=== PATIENT | male | born 1945 | race Caucasian/White ===

== ENCOUNTER 2017-07-24 16:20 | Inpatient (IN) | payer MEDICARE, OTHER ==
[~2017-07-24] VITALS: Ht 170.2 cm; Wt 104.5 kg
--- NOTE | ~2017-07-24 | HP ---
History And Physical [id number] [place]. [address] NAME: MONTSE SERRATO : 41 STATUS : ADM IN [facility]#: [id number] AGE: 71 ADM/REG DATE : 07/24/17 MR#: [id number] REPORT SERV DATE: 07/24/17 DICTATED BY: JOSUÉ URIBE JR. DATE: 07/24/17 REPORT STATUS : Draft TRANSCRIBED BY: ZOLTAN DATE: 07/24/17 DATE OF ADMISSION: 07/24/2017 CHIEF COMPLAINT: Chest pain. HISTORY OF PRESENT ILLNESS: Montse is a 71-year-old white male, who drives a bus for living. He had new onset chest pain around 3:15, it persisted and was worrisome prompting EMS call. EKG in the field revealed anteroseptal STEMI and code STEMI protocol was activated. On arrival, the patient's chest pain was 2/10. He denied shortness of breath. The patient denied prior angina to this event. PAST MEDICAL HISTORY: Includes hypertension, type 2 diabetes, mixed hyperlipidemia, hypothyroidism, obesity. He had pilonidal cyst surgery 40 years ago. He denies prior TIA or stroke. ALLERGIES: DENIED. CURRENT MEDICATIONS: Include levothyroxine, atorvastatin, losartan, metformin, aspirin, and vitamin D. SOCIAL HISTORY: The patient does not smoke, drink, or use recreational drugs. FAMILY HISTORY: Negative for premature vascular events. REVIEW OF SYSTEMS: He denies bleeding diathesis, recent fever or chills, sudden weight gain or weight loss. Remainder as in HPI or negative. PHYSICAL EXAMINATION: VITAL SIGNS: Blood pressure is 108/60, heart rate 67, respirations 16. GENERAL: Obese male, in no acute distress. HEENT: Anicteric, no scleral injection, no oral lesions. NECK: No JVD, supple, no bruits. LUNGS: Clear to auscultation. No hyperexpansion. CARDIOVASCULAR: Regular rate and rhythm with distant heart sounds. ABDOMEN: Soft, nontender. Normoactive bowel sounds, no hepatosplenomegaly. EXTREMITIES: Trace peripheral edema. SKIN: No visible rashes. NEURO/PSY: Normal affect, alert and oriented x 3. MEDICAL DECISION MAKIN. Anterior ST-elevation myocardial infarction. The patient has persistent ST-elevation on the monitor. His symptoms have improved with therapy. He is a diabetic. Based upon presenting EKG and persistent symptoms, the patient will go emergently to coronary angiography and percutaneous intervention. The risks and benefits were verbally explained and verbally accepted. This is considered an emergent procedure. History And Physical [address] [address] NAME: MONTSE SERRATO : [birth year] STATUS : ADM IN [facility]#: [id number] AGE: 71 ADM/REG DATE : 07/24/17 MR#: [id number] REPORT SERV DATE: 07/24/17 DICTATED BY: JOSUÉ URIBE JR. DATE: 07/24/17 REPORT STATUS : Draft TRANSCRIBED BY: MODL DATE: 07/24/17 2. Mixed hyperlipidemia. The patient will be titrated to intensive statin therapy. 3. Diabetes. We will ask the hospitalist to assist us with care during this hospital stay. YVETTE/ZOLTAN Josué Uribe Jr., M.D. / [id number] CC: Josué Uribe Jr., M.D.
[2017-07-24 17:09] LABS: BASOPHILS 0.3 %; BASOPHILS ABSOLUTE 0.03 10/3/uL (0.0-0.16); EOSINOPHILS 1.6 %; EOSINOPHILS ABSOLUTE 0.15 10/3/uL (0.0-0.53); HEMATOCRIT 42.5 % (40.0-51.0); IMMATURE GRANULOCYTES 0.3 %; IMMATURE GRANULOCYTES ABSOLUTE 0.03 10/3/uL (0.0-0.11); LYMPHOCYTES 21.4 %; LYMPHOCYTES ABSOLUTE 1.98 10/3/uL (0.67-4.30); MEAN CORPUS HGB CONC 35.3 g/dL (32.0-36.0); MEAN CORPUSCULAR HEMOGLOB 31.3 pg (26.0-34.0); MEAN CORPUSCULAR VOLUME 88.5 fL (80-100); MEAN PLATELET VOLUME 9.7 fL (9.2-13.0); MONOCYTES ABSOLUTE 0.56 10/3/uL (0.21-1.20); NEUTROPHILS 70.4 %; NEUTROPHILS ABSOLUTE 6.51 10/3/uL (2.02-8.40); PLATELET COUNT 187 10/3/uL (150-400); RBC DISTRIBUTION WIDTH 13.3 % (12.0-16.0); WHITE BLOOD CELLS 9.3 10/3/uL (4.5-10.5)
[2017-07-24 17:10] LABS: MANUAL DIFF NO %
[2017-07-24 17:17] LABS: INTERNATIONAL NORMAL RATI 1.1 UNITS (-); PROTIME (NOT ORD) 14.5 SEC (12.0-14.5)
[2017-07-24 17:20] LABS: PARTIAL THROMBO TIME 110.7 SEC (22.5-37.2)
[2017-07-24 17:24] LABS: BUN (BLOOD UREA NITROGEN) 29 MG/DL (6-23); CALCIUM, SERUM 9.2 MG/DL (8.5-10.4); CHEST PAIN PROFILE TAT 0 Hrs 19 Mins; CHLORIDE, SERUM 108 MMOL/L (96-112); CO2 (CARBON DIOXIDE) 21 MMOL/L (24-34); CREATININE 1.24 MG/DL (0.70-1.30); GFR AFRICAN AMERICAN 66 ML/MIN (>=60); GFR NON AFRICAN AMERICAN 57 ML/MIN (>=60); GLUCOSE, SERUM 158 MG/DL (60-99); POTASSIUM, SERUM 3.9 MMOL/L (3.5-5.3); SODIUM, SERUM 139 MMOL/L (135-148); TROPONIN I 0.03 NG/ML (<0.05)
[2017-07-24 17:28] LABS: CREATININE 1.1 MG/DL (0.70-1.30)
[2017-07-24 20:26] LABS: CK-MB 10.1 NG/ML
[2017-07-24 20:30] LABS: CKMB INDEX (NOT ORD) 7.2
[2017-07-24 20:31] LABS: TROPONIN I 1.48 NG/ML (<0.05)
[2017-07-24] MEDS ORDERED: LEVOTHYROXIN50 MCG PO (22:27)
[2017-07-24] MEDS ORDERED: FORTAMET500 MG PO (22:28)
[2017-07-24] MEDS ORDERED: LIPITOR20 PO (22:28)
[2017-07-24] MEDS ORDERED: ASAB PO (22:29)
[2017-07-24] MEDS ORDERED: COZ50 PO (22:29)
[2017-07-24] MEDS ORDERED: VITAMIN D2000 UNIT PO (22:30)
[2017-07-24] MEDS ORDERED: MULTIPLE VIT PO (22:30)
[2017-07-25 04:09] LABS: BASOPHILS 0.2 %; BASOPHILS ABSOLUTE 0.02 10/3/uL (0.0-0.16); EOSINOPHILS 0.1 %; EOSINOPHILS ABSOLUTE 0.01 10/3/uL (0.0-0.53); HEMATOCRIT 42.8 % (40.0-51.0); HEMOGLOBIN 14.9 g/dL (13.6-17.8); IMMATURE GRANULOCYTES 0.3 %; IMMATURE GRANULOCYTES ABSOLUTE 0.04 10/3/uL (0.0-0.11); LYMPHOCYTES 8.8 %; LYMPHOCYTES ABSOLUTE 1.02 10/3/uL (0.67-4.30); MEAN CORPUS HGB CONC 34.8 g/dL (32.0-36.0); MEAN CORPUSCULAR HEMOGLOB 30.7 pg (26.0-34.0); MEAN CORPUSCULAR VOLUME 88.2 fL (80-100); MEAN PLATELET VOLUME 9.8 fL (9.2-13.0); MONOCYTES 6.5 %; MONOCYTES ABSOLUTE 0.76 10/3/uL (0.21-1.20); NEUTROPHILS 84.1 %; NEUTROPHILS ABSOLUTE 9.78 10/3/uL (2.02-8.40); PLATELET COUNT 168 10/3/uL (150-400); RBC DISTRIBUTION WIDTH 13.6 % (12.0-16.0); RED CELL COUNT 4.85 10/6/uL (4.7-6.1); WHITE BLOOD CELLS 11.6 10/3/uL (4.5-10.5)
[2017-07-25 04:11] LABS: MANUAL DIFF NO %
[2017-07-25 04:26] LABS: BUN (BLOOD UREA NITROGEN) 25 MG/DL (6-23); CALCIUM, SERUM 8.6 MG/DL (8.5-10.4); CHLORIDE, SERUM 108 MMOL/L (96-112); CHOL/HDL RATIO(NOT ORDER) 2.8 (0-5); CHOLESTEROL 110 MG/DL (< 200); CK-MB 119.3 NG/ML; CKMB INDEX (NOT ORD) 16.4; CO2 (CARBON DIOXIDE) 21 MMOL/L (24-34); CPK 729 U/L (0-200); CREATININE 1.12 MG/DL (0.70-1.30); GFR AFRICAN AMERICAN 75 ML/MIN (>=60); GFR NON AFRICAN AMERICAN 65 ML/MIN (>=60); GLUCOSE, SERUM 150 MG/DL (60-99); HDL CHOLESTEROL 39 MG/DL (> 39); LDL CHOLESTEROL 42 MG/DL (< 130); NON-HDL CHOLESTEROL 71 MG/DL (< 160); POTASSIUM, SERUM 4.1 MMOL/L (3.5-5.3); SODIUM, SERUM 138 MMOL/L (135-148); TRIGLYCERIDE 149 MG/DL (< 150)
[2017-07-25 12:08] LABS: CK-MB 238.9 NG/ML
[2017-07-25 12:09] LABS: CKMB INDEX (NOT ORD) 15.9; TROPONIN I 22.1 NG/ML (<0.05)
[2017-07-26 04:41] LABS: BASOPHILS 0.1 %; BASOPHILS ABSOLUTE 0.01 10/3/uL (0.0-0.16); EOSINOPHILS 0.4 %; EOSINOPHILS ABSOLUTE 0.06 10/3/uL (0.0-0.53); HEMATOCRIT 44.7 % (40.0-51.0); HEMOGLOBIN 15.8 g/dL (13.6-17.8); IMMATURE GRANULOCYTES 0.4 %; IMMATURE GRANULOCYTES ABSOLUTE 0.06 10/3/uL (0.0-0.11); LYMPHOCYTES 8.7 %; LYMPHOCYTES ABSOLUTE 1.22 10/3/uL (0.67-4.30); MEAN CORPUS HGB CONC 35.3 g/dL (32.0-36.0); MEAN CORPUSCULAR VOLUME 87.6 fL (80-100); MEAN PLATELET VOLUME 9.5 fL (9.2-13.0); MONOCYTES 13.5 %; MONOCYTES ABSOLUTE 1.89 10/3/uL (0.21-1.20); NEUTROPHILS 76.9 %; PLATELET COUNT 148 10/3/uL (150-400); RBC DISTRIBUTION WIDTH 13.4 % (12.0-16.0)
[2017-07-26 04:44] LABS: MANUAL DIFF NO %
[2017-07-26 04:55] LABS: CALCIUM, SERUM 8.6 MG/DL (8.5-10.4); CHLORIDE, SERUM 105 MMOL/L (96-112); CO2 (CARBON DIOXIDE) 25 MMOL/L (24-34); CREATININE 1.23 MG/DL (0.70-1.30); GFR AFRICAN AMERICAN 67 ML/MIN (>=60); GFR NON AFRICAN AMERICAN 58 ML/MIN (>=60); GLUCOSE, SERUM 167 MG/DL (60-99); SODIUM, SERUM 137 MMOL/L (135-148)
[2017-07-26 04:56] LABS: BUN (BLOOD UREA NITROGEN) 21 MG/DL (6-23)
[2017-07-27 04:11] LABS: BUN (BLOOD UREA NITROGEN) 21 MG/DL (6-23); CALCIUM, SERUM 8.7 MG/DL (8.5-10.4); CHLORIDE, SERUM 103 MMOL/L (96-112); CO2 (CARBON DIOXIDE) 22 MMOL/L (24-34); CREATININE 1.13 MG/DL (0.70-1.30); GFR AFRICAN AMERICAN 74 ML/MIN (>=60); GFR NON AFRICAN AMERICAN 64 ML/MIN (>=60); GLUCOSE, SERUM 157 MG/DL (60-99); POTASSIUM, SERUM 3.7 MMOL/L (3.5-5.3); SODIUM, SERUM 135 MMOL/L (135-148)
[2017-07-28 05:23] LABS: BASOPHILS 0.1 %; BASOPHILS ABSOLUTE 0.02 10/3/uL (0.0-0.16); EOSINOPHILS 0.4 %; EOSINOPHILS ABSOLUTE 0.06 10/3/uL (0.0-0.53); HEMATOCRIT 43.6 % (40.0-51.0); HEMOGLOBIN 15.3 g/dL (13.6-17.8); IMMATURE GRANULOCYTES 0.5 %; IMMATURE GRANULOCYTES ABSOLUTE 0.07 10/3/uL (0.0-0.11); LYMPHOCYTES 10.1 %; MEAN CORPUS HGB CONC 35.1 g/dL (32.0-36.0); MEAN CORPUSCULAR HEMOGLOB 30.9 pg (26.0-34.0); MEAN CORPUSCULAR VOLUME 88.1 fL (80-100); MONOCYTES 11.3 %; MONOCYTES ABSOLUTE 1.67 10/3/uL (0.21-1.20); NEUTROPHILS 77.6 %; NEUTROPHILS ABSOLUTE 11.51 10/3/uL (2.02-8.40); PLATELET COUNT 181 10/3/uL (150-400); RBC DISTRIBUTION WIDTH 13.4 % (12.0-16.0); RED CELL COUNT 4.95 10/6/uL (4.7-6.1); WHITE BLOOD CELLS 14.8 10/3/uL (4.5-10.5)
[2017-07-28 05:25] LABS: CALCIUM, SERUM 9.1 MG/DL (8.5-10.4); CHLORIDE, SERUM 103 MMOL/L (96-112); CO2 (CARBON DIOXIDE) 20 MMOL/L (24-34); CREATININE 1.27 MG/DL (0.70-1.30); GFR AFRICAN AMERICAN 65 ML/MIN (>=60); GFR NON AFRICAN AMERICAN 56 ML/MIN (>=60); GLUCOSE, SERUM 149 MG/DL (60-99); MANUAL DIFF NO %; POTASSIUM, SERUM 3.9 MMOL/L (3.5-5.3); SODIUM, SERUM 133 MMOL/L (135-148)
[2017-07-28 05:27] LABS: BUN (BLOOD UREA NITROGEN) 32 MG/DL (6-23)
[2017-07-28] MEDS ORDERED: COREG25 PO (15:47)
[2017-07-28] MEDS ORDERED: LIPITOR40 PO (15:47)
[2017-07-28] MEDS ORDERED: BRILINTA90 MG PO (15:50)
[2017-07-28] MEDS ORDERED: SPIRO25 PO (15:50)
[2017-07-28] MEDS ORDERED: NTG150 SL (15:51)
== END 2017-07-28 17:43 | disposition home or self-care (01) | DRG 248 ==
LOC: ENRESERV → ENRESERVTM → ENRESERVDT → SSU2 16:20 → CCU 16:20 → 7NO 07-27 14:41
PROVIDERS: Internal Medicine Cardiovascular Disease
PROC: 02703DZ Dilation of Coronary Artery, One Artery with Intraluminal Device, Percutaneous Approach (ICD-10-PCS; principal; 2017-07-24)
PROC: 4A023N7 Measurement of Cardiac Sampling and Pressure, Left Heart, Percutaneous Approach (ICD-10-PCS; 2017-07-24)
PROC: B2151ZZ Fluoroscopy of Left Heart using Low Osmolar Contrast (ICD-10-PCS; 2017-07-24)
PROC: B2111ZZ Fluoroscopy of Multiple Coronary Arteries using Low Osmolar Contrast (ICD-10-PCS; 2017-07-24)
DX: I21.09 ST elevation (STEMI) myocardial infarction involving other coronary artery of anterior wall (principal); I50.21 Acute systolic (congestive) heart failure; I47.2 Ventricular tachycardia; E11.9 Type 2 diabetes mellitus without complications; I25.10 Atherosclerotic heart disease of native coronary artery without angina pectoris; E78.2 Mixed hyperlipidemia; E03.9 Hypothyroidism, unspecified; E66.9 Obesity, unspecified; E78.00 Pure hypercholesterolemia, unspecified; I11.0 Hypertensive heart disease with heart failure; Z88.8 Allergy status to other drugs, medicaments and biological substances; Z87.891 Personal history of nicotine dependence; Z79.82 Long term (current) use of aspirin; Z79.84 Long term (current) use of oral hypoglycemic drugs
CPT/HCPCS: 71010; 80048; 80061; 82550; 82553; 82962; 83735; 84132; 84295; 84443; 84484; 85025; 85610; 85730; 87641; 92941; 93005; 93306; 93458; 99152; 99153; A9270-GY; C1725; C1769; C1876; C1887; C1894; C8929; J0583; J2250; J2405; J3010; Q9957; Q9967